=== PATIENT | female | born 1965 | race Caucasian/White ===

== ENCOUNTER 2017-11-07 14:06 | Emergency (ER) | payer SELFPAY ==
[2017-11-07 14:28] VITALS: BP 126/65
[2017-11-07] MEDS ORDERED: Ketorolac 60 MG/2 ML SDV IM ONE (14:59)
--- NOTE | 2017-11-07 15:02 | EDM.PDOC ---
ED HPI GENERAL MEDICAL PROBLEM - General Chief Complaint: Upper Extremity Injury/Pain Stated Complaint: LEFT THUMB PAIN,UTI SYMPTOMS Time Seen by Provider: 11/07/17 14:55 Source of Information: Reports: Patient, RN Notes Reviewed History Limitations: Reports: No Limitations - History of Present Illness INITIAL COMMENTS - FREE TEXT/NARRATIVE: 52-year-old female presents to the emergency department day complaint of pain in her left thumb, she denies any trauma pain is been ongoing for some time does have some swelling in that thumb but it is worse today. Also complains of urinary tract symptomatology with dribbling incontinence and frequency no fevers Left 1-Thumb Pain Score (Numeric/FACES): 4 - Related Data Allergies Allergy/AdvReac Type Severity Reaction Status Date / Time No Known Allergies Allergy Verified 11/07/17 14:39 Home Meds: Home Meds NK [No Known Home Meds] 05/10/13 [History] Past Medical History - Past Surgical History Female Surgical History: Reports: Tubal Ligation Social & Family History - Tobacco Use Smoking Status *Q: Light Tobacco Smoker Years of Tobacco use: 20 Packs/Tins Daily: 0.5 Second Hand Smoke Exposure: Yes - Alcohol Use Days Per Week of Alcohol Use: 3 Number of Drinks Per Day: 1 Total Drinks Per Week: 3 - Recreational Drug Use Recreational Drug Use: No ED ROS GENERAL - Review of Systems Review Of Systems: See Below Constitutional: Reports: No Symptoms Respiratory: Reports: No Symptoms Cardiovascular: Reports: No Symptoms GI/Abdominal: Reports: No Symptoms : Reports: Dysuria, Frequency. Denies: Flank Pain Musculoskeletal: Reports: Joint Pain (Thumb pain left) ED EXAM, GENERAL - Physical Exam Exam: See Below Free Text/Narrative:: Examination of the thumb full range of motion of the wrist no difficulty full range of motion digits 2 through 5 however she does have an audible click at the PIP joint digit #1 consistent with trigger finger Exam Limited By: No Limitations General Appearance: Alert, WD/WN, No Apparent Distress GI/Abdominal: Soft, Non-Tender Course - Vital Signs Last Recorded V/S: Last Vital Signs Temp 97.5 F 11/07/17 14:38 Pulse 81 11/07/17 14:38 Resp 18 11/07/17 14:38 BP 126/65 11/07/17 14:38 Pulse Ox 93 L 11/07/17 14:38 - Orders/Labs/Meds Orders: Active Orders 24 hr Category Date Time Status UA W/MICROSCOPIC [URIN] Urgent Lab 11/07/17 15:03 Ordered Labs: Laboratory Tests 11/07/17 Range/Units 15:03 Urine Color Yellow Urine Appearance Clear Urine pH 7.0 (4.5-8.0) Ur Specific [place] 1.010 (1.008-1.030) Urine Protein Negative (NEGATIVE) mg/dL Urine Glucose (UA) Normal (NEGATIVE) mg/dL Urine Ketones Negative (NEGATIVE) mg/dL Urine Occult Blood Negative (NEGATIVE) Urine Nitrite Negative (NEGATIVE) Urine Bilirubin Negative (NEGATIVE) Urine Urobilinogen Normal (NORMAL) mg/dL Ur Leukocyte Esterase Negative (NEGATIVE) Urine RBC 0-5 (0-5) Urine WBC 0-5 (0-5) Ur Epithelial Cells Few Amorphous Sediment Not seen Urine Bacteria Not seen Urine Mucus Not seen Meds: Medications Discontinued Medications Generic Name Dose Route Start Last Admin Trade Name Freq PRN Reason Stop Dose Admin Ketorolac Tromethamine 60 mg 11/07/17 14:59 11/07/17 15:08 Toradol IM 11/07/17 15:00 60 mg ONETIME ONE Administration Departure - Departure Time of Disposition: 15:14 Disposition: Home, Self-Care 01 Condition: Good Clinical Impression: Trigger finger of left thumb - Discharge Information Referrals: Renzo Connell MD [Primary Care Provider] - Forms: ED Department Discharge Additional Instructions: Use ibuprofen or Tylenol as needed for pain control, please follow-up with orthopedics on Friday for further evaluation - My Orders Last 24 Hours: My Active Orders 11/07/17 15:03 UA W/MICROSCOPIC [URIN] Urgent - Assessment/Plan Last 24 Hours: My Active Orders 11/07/17 15:03 UA W/MICROSCOPIC [URIN] Urgent Plan: Assessment Acuity = acute Site and laterality = trigger finger digit #1 left hand Etiology = unclear etiology Manifestations = pain Location of injury = Home Lab values = urinalysis unremarkable Plan She was provided Toradol injection 60 mg 1, consultation with orthopedics on Friday morning This note was dictated using [email or web address] voice recognition software please call with any questions on syntax or rony.
== END 2017-11-07 15:25 | disposition home or self-care (01) ==
LOC: JP.ED 14:06
DX: M65.312 Trigger thumb, left thumb (principal); F17.210 Nicotine dependence, cigarettes, uncomplicated
CPT/HCPCS: 81001; 96372; 99284; J1885

== ENCOUNTER 2018-09-08 14:09 | Emergency (ER) | payer MEDICAID ==
--- NOTE | 2018-09-08 15:26 | EDM.PDOC ---
ED HPI GENERAL MEDICAL PROBLEM - General Chief Complaint: Upper Extremity Injury/Pain Stated Complaint: INJURED RIGHT ARM Time Seen by Provider: 09/08/18 15:21 Source of Information: Reports: Patient, Family, RN Notes Reviewed History Limitations: Reports: No Limitations - History of Present Illness INITIAL COMMENTS - FREE TEXT/NARRATIVE: 53-year-old female presents to the emergency department today with complaint of pain in her right arm, she injured herself while out shoveling snow she fell and landed on the right forearm she is now experiencing pain and has difficulty opening and closing her hand Right Wrist Pain Score (Numeric/FACES): 8 - Related Data Allergies Allergy/AdvReac Type Severity Reaction Status Date / Time No Known Allergies Allergy Verified 09/08/18 15:07 Home Meds: Home Meds NK [No Known Home Meds] 05/10/13 [History] Past Medical History Musculoskeletal History: Reports: Other (See Below) Other Musculoskeletal History: left hand thumb pain - Past Surgical History Female Surgical History: Reports: Tubal Ligation Social & Family History - Tobacco Use Smoking Status *Q: Current Every Day Smoker Years of Tobacco use: 20 Packs/Tins Daily: 0.5 Second Hand Smoke Exposure: Yes - Caffeine Use Caffeine Use: Reports: Coffee, Energy Drinks, Soda, Tea - Alcohol Use Days Per Week of Alcohol Use: 1 Number of Drinks Per Day: 3 Total Drinks Per Week: 3 - Recreational Drug Use Recreational Drug Use: No Review of Systems - Review of Systems Review Of Systems: See Below Musculoskeletal: Reports: Arm Pain Skin: Reports: No Symptoms Neurological: Reports: No Symptoms ED EXAM, GENERAL - Physical Exam Exam: See Below Free Text/Narrative:: Examination the right upper extremity I don't appreciate any erythema or edema located over the tender area mid forearm there is no tenderness shoulder elbow or wrist she has full range of motion of all digits but it is limited when she closes her hand radial pulse is +2 can palpate a firm area in the muscle structure mid forearm it is tender to the touch at that spot Course - Vital Signs Last Recorded V/S: Last Vital Signs Temp 95.7 F 09/08/18 15:07 Pulse 91 09/08/18 15:07 Resp 16 09/08/18 15:07 BP 134/83 09/08/18 15:07 Pulse Ox 99 09/08/18 15:07 - Orders/Labs/Meds Orders: Active Orders 24 hr Category Date Time Status Forearm 2V Rt [CR] Stat Exams 09/08/18 15:23 Taken Meds: Medications Discontinued Medications Generic Name Dose Route Start Last Admin Trade Name Shannon PRN Reason Stop Dose Admin Ketorolac Tromethamine 30 mg 09/08/18 15:55 Toradol IM 09/08/18 15:56 ONETIME ONE Departure - Departure Time of Disposition: 16:15 Disposition: Home, Self-Care 01 Condition: Fair Clinical Impression: Contusion of right forearm Qualifiers: Encounter type: initial encounter Qualified Code(s): S50.11XA - Contusion of right forearm, initial encounter - Discharge Information Referrals: Renzo Connell MD [Primary Care Provider] - Forms: ED Department Discharge Additional Instructions: Use ibuprofen for baseline pain control, use Flexeril as needed for muscle relaxant, Please followup with your primary care provider in 5-7 days if not better, please call return to the emergency department with worsening of symptoms. - My Orders Last 24 Hours: My Active Orders 09/08/18 15:23 Forearm 2V Rt [CR] Stat - Assessment/Plan Last 24 Hours: My Active Orders 09/08/18 15:23 Forearm 2V Rt [CR] Stat Plan: Assessment Acuity = acute Site and laterality = right forearm contusion Etiology = secondary to a fall Manifestations = pain Location of injury = Home Lab values = forearm x-ray I did review films myself I cannot appreciate any acute process, the official read from radiology is pending Plan I did review x-ray films with her, recommend ibuprofen prescription written for Flexeril 10 mg by mouth 3 times a day when necessary total #15 follow-up primary care 3-5 days if no improvement This note was dictated using [employer] recognition software please call with any questions on syntax or grammar.
[2018-09-08] MEDS ORDERED: Ketorolac 30 MG/ML SDV IM ONE (15:55)
[2018-09-08 16:42] VITALS: BP 125/79
--- NOTE | 2018-09-09 10:50 | CRLCR ---
INDICATION: fall, Pain TECHNIQUE: Right forearm 2 views. COMPARISON: None. FINDINGS: Bones: Alignment is normal. No fractures or bone lesions. Joint spaces: Unremarkable. Soft tissues: Unremarkable. IMPRESSION: Unremarkable right forearm. Dictated by: Arthur Alas MD @ 09/08/2018 17:05:43 (Electronically Signed)
== END 2018-09-08 16:45 | disposition home or self-care (01) ==
LOC: JP.ED 14:09
DX: S50.11XA Contusion of right forearm, initial encounter (principal); F17.210 Nicotine dependence, cigarettes, uncomplicated; W19.XXXA Unspecified fall, initial encounter
CPT/HCPCS: 73090; 96372; 99284; J1885

== ENCOUNTER 2019-07-09 11:24 | Emergency (ER) | payer MEDICAID ==
[2019-07-09 11:38] VITALS: BP 123/80; PULSE 87
--- NOTE | 2019-07-09 12:34 | EDM.PDOC ---
ED HPI GENERAL MEDICAL PROBLEM - General Chief Complaint: Genitourinary Problem Stated Complaint: UTI AND YEAST INFECTION Time Seen by Provider: 07/09/19 12:25 Source of Information: Reports: Patient, RN Notes Reviewed History Limitations: Reports: No Limitations - History of Present Illness INITIAL COMMENTS - FREE TEXT/NARRATIVE: 54-year-old female presents emergency department a complaint of burning with urination and vaginal itching, she does have a history of recurrent urinary tract infections as well as yeast infections. She states this particular event started about 5 days prior she usually is able to control her urinary symptoms with cranberry juice however this did not work for her and she is now developed some right back pain, no fever. Abdomen Pain Score (Numeric/FACES): 9 - Related Data Allergies Allergy/AdvReac Type Severity Reaction Status Date / Time No Known Allergies Allergy Verified 09/08/18 15:07 Home Meds: Home Meds Fluconazole [Diflucan] 150 mg PO ONETIME #1 tab 07/09/19 [Rx] Sulfamethoxazole/Trimethoprim [Bactrim Ds Tablet] 1 each PO BID #20 tablet 07/09 [Rx] Past Medical History Genitourinary History: Reports: UTI, Recurrent Musculoskeletal History: Reports: Other (See Below) Other Musculoskeletal History: left hand thumb pain - Past Surgical History Female Surgical History: Reports: Tubal Ligation Social & Family History - Family History Family Medical History: Unobtainable - Tobacco Use Smoking Status *Q: Current Every Day Smoker Years of Tobacco use: 20 Packs/Tins Daily: 0.5 Used Tobacco, but Quit: No - Caffeine Use Caffeine Use: Reports: Coffee, Soda - Recreational Drug Use Recreational Drug Use: No ED ROS GENERAL - Review of Systems Review Of Systems: See Below Constitutional: Denies: Fever, Chills Respiratory: Reports: No Symptoms Cardiovascular: Reports: No Symptoms GI/Abdominal: Reports: No Symptoms : Reports: Dysuria, Flank Pain ED EXAM, RENAL/ - Physical Exam Exam: See Below Exam Limited By: No Limitations General Appearance: Alert, WD/WN, No Apparent Distress Respiratory/Chest: No Respiratory Distress GI/Abdominal: Soft, Non-Tender Back Exam: Normal Inspection, Full Range of Motion, CVA Tenderness (R). No: CVA Tenderness (L) Course - Vital Signs Last Recorded V/S: Last Vital Signs Temp 97.1 F 07/09/19 11:37 Pulse 87 07/09/19 11:37 Resp 18 07/09/19 11:37 BP 123/80 07/09/19 11:37 Pulse Ox 93 L 07/09/19 11:37 - Orders/Labs/Meds Orders: Active Orders 24 hr Category Date Time Status CULTURE URINE [RM] Urgent Lab 07/09/19 12:25 Ordered Labs: Laboratory Tests 07/09/19 Range/Units 11:41 Urine Color Yellow (YELLOW) Urine Appearance Cloudy A (CLEAR) Urine pH 7.0 (5.0-8.0) Ur Specific [place] 1.015 (1.008-1.030) Urine Protein 30 H (NEGATIVE) mg/dL Urine Glucose (UA) Negative (NEGATIVE) mg/dL Urine Ketones Negative (NEGATIVE) mg/dL Urine Occult Blood Trace-intact H (NEGATIVE) Urine Nitrite Positive H (NEGATIVE) Urine Bilirubin Negative (NEGATIVE) Urine Urobilinogen 0.2 (0.2-1.0) EU/dL Ur Leukocyte Esterase Moderate H (NEGATIVE) Urine RBC 0-5 (0-5) Urine WBC 75-100 H (0-5) Ur Epithelial Cells Few Amorphous Sediment Not seen Urine Bacteria Few Urine Mucus Not seen Departure - Departure Time of Disposition: 12:33 Disposition: Home, Self-Care 01 Condition: Fair Clinical Impression: UTI, Urinary tract infectious disease - Discharge Information Prescriptions: Fluconazole [Diflucan] 150 mg PO ONETIME #1 tab Sulfamethoxazole/Trimethoprim [Bactrim Ds Tablet] 1 each PO BID #20 tablet Instructions: Urinary Tract Infection, Adult, [id number] Referrals: PCP,None [Primary Care Provider] - Additional Instructions: Take full course of antibiotics, take the Diflucan after completion of antibiotics, please followup with your primary care provider in 3-5 days if not better, please call return to the emergency department with worsening of symptoms. - My Orders Last 24 Hours: My Active Orders 07/09/19 12:25 CULTURE URINE [RM] Urgent - Assessment/Plan Last 24 Hours: My Active Orders 07/09/19 12:25 CULTURE URINE [RM] Urgent Plan: Assessment Acuity = acute Site and laterality = urinary tract infection concern for pyelonephritis Etiology = bacterial cause Manifestations = dysuria Location of injury = Home Lab values = urinalysis is positive for nitrates 75 200 WBCs consistent with a pyuria with few bacteria urine cultures pending Plan Elect to treat empirically Bactrim DS 1 tab p.o. twice daily x10 days as well as Diflucan to be taken after the treatment with antibiotics follow-up primary care 3 to 5 days if not better This note was dictated using [employer] recognition software please call with any questions on syntax or grammar.
== END 2019-07-09 12:46 | disposition home or self-care (01) ==
LOC: JP.ED 11:24
DX: N39.0 Urinary tract infection, site not specified (principal); B96.89 Other specified bacterial agents as the cause of diseases classified elsewhere; F17.210 Nicotine dependence, cigarettes, uncomplicated; Z79.899 Other long term (current) drug therapy
CPT/HCPCS: 81001; 87086; 87088; 87186; 99283

== ENCOUNTER 2019-10-15 10:26 | Emergency (ER) | payer MEDICAID ==
[2019-10-15 10:41] VITALS: BP 117/77; PULSE 88
[2019-10-15] MEDS ORDERED: Ketorolac 60 MG/2 ML SDV IM ONE (10:54)
--- NOTE | 2019-10-15 10:59 | EDM.PDOC ---
ED HPI GENERAL MEDICAL PROBLEM - General Chief Complaint: Respiratory Problem Stated Complaint: CHEST PAIN AND SOB Time Seen by Provider: 10/15/19 10:45 Source of Information: Reports: Patient, Old Records, RN History Limitations: Reports: No Limitations - History of Present Illness INITIAL COMMENTS - FREE TEXT/NARRATIVE: 54 yo female awoke today with sternal tenderness worsened with pushing on area or with deep breathing. Has noticed increased joint pains over the past couple of days. Denies fever or cough. No other sx's. Onset: Today Onset Date: 10/15/19 Onset Time: 10:00 (just woke up) Duration: Minutes: (?), Constant Location: Reports: Chest (sternal) Quality: Reports: Ache Severity: Mild Improves with: Reports: Rest Worsens with: Reports: Other (deep breathing or pushing on area) Context: Reports: Other (See HPI) Associated Symptoms: Reports: Chest Pain (sternum). 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) - Related Data Allergies Allergy/AdvReac Type Severity Reaction Status Date / Time No Known Allergies Allergy Verified 10/15/19 10:39 Home Meds: Home Meds Meloxicam 15 mg PO BID #20 tablet 10/15/19 [Rx] Past Medical History Genitourinary History: Reports: UTI, Recurrent Musculoskeletal History: Reports: Other (See Below) Other Musculoskeletal History: left hand thumb pain - Past Surgical History Female Surgical History: Reports: Tubal Ligation Social & Family History - Family History Family Medical History: Unobtainable - Tobacco Use Smoking Status *Q: Current Every Day Smoker Years of Tobacco use: 20 Packs/Tins Daily: 0.5 - Caffeine Use Caffeine Use: Reports: Coffee, Soda ED ROS GENERAL - Review of Systems Review Of Systems: See Below Constitutional: Reports: No Symptoms HEENT: Reports: No Symptoms Respiratory: Reports: No Symptoms Cardiovascular: Reports: No Symptoms Endocrine: Reports: No Symptoms GI/Abdominal: Reports: No Symptoms : Reports: No Symptoms Musculoskeletal: Reports: Other (sternal tenderness) Skin: Reports: No Symptoms Neurological: Reports: No Symptoms Psychiatric: Reports: No Symptoms ED EXAM, GENERAL - Physical Exam Exam: See Below Exam Limited By: No Limitations General Appearance: Alert, WD/WN, No Apparent Distress Eye Exam: Bilateral Eye: PERRL Ears: Normal External Exam, Normal Canal, Hearing Grossly Normal, Normal TMs Ear Exam: Bilateral Ear: Auricle Normal, Canal Normal, TM normal Nose: Normal Inspection, No Blood Throat/Mouth: Normal Inspection, Normal Lips, No Airway Compromise, Other ( slightly hoarse voice). No: Normal Teeth Head: Atraumatic, Normocephalic Neck: Normal Inspection Respiratory/Chest: No Respiratory Distress, No Accessory Muscle Use, Decreased Breath Sounds (slightly decreased), Other (Sternal tenderness). No: Respiratory Distress, Crackles, Rales, Rhonchi, Wheezing, Stridor, Pleural Rub, Accessory Muscle Use, Retractions, Prolonged Expiration Cardiovascular: Regular Rate, Rhythm, No Edema GI/Abdominal: Normal Bowel Sounds, Soft, Non-Tender, No Distention Back Exam: Normal Inspection. No: CVA Tenderness (R), CVA Tenderness (L) Extremities: Normal Inspection, Normal Range of Motion, Non-Tender, No Pedal Edema Neurological: Alert, Oriented, CN II-XII Intact, Normal Cognition, No Motor/ Sensory Deficits Psychiatric: Normal Affect, Normal Mood Skin Exam: Warm, Dry, Intact, Normal Color, No Rash Course - Vital Signs Last Recorded V/S: Last Vital Signs Temp 36.3 C 10/15/19 10:46 Pulse 88 10/15/19 10:46 Resp 20 10/15/19 10:46 BP 117/77 10/15/19 10:46 Pulse Ox 100 10/15/19 10:46 - Orders/Labs/Meds Meds: Medications Discontinued Medications Generic Name Dose Route Start Last Admin Trade Name Shannon PRN Reason Stop Dose Admin Ketorolac Tromethamine 60 mg 10/15/19 10:54 10/15/19 11:04 Toradol IM 10/15/19 10:55 60 mg ONETIME ONE Administration - Re-Assessments/Exams Free Text/Narrative Re-Assessment/Exam: 10/15/19 11:34 Feeling better after Toradol. Departure - Departure Time of Disposition: 11:40 Disposition: Home, Self-Care 01 Condition: Good Clinical Impression: Costochondritis - Discharge Information *PRESCRIPTION DRUG MONITORING PROGRAM REVIEWED*: No *COPY OF PRESCRIPTION DRUG MONITORING REPORT IN PATIENT BURT: No Instructions: Costochondritis, [id number] Referrals: Renzo Connell MD [Primary Care Provider] - Forms: ED Department Discharge Additional Instructions: No smoking. Take meloxicam with breakfast and supper daily until your sternal tenderness is resolved. You may add acetaminophen up to 1000 mg every 6 hrs for added relief. Recheck with your provider next week if not improving. Sepsis Event Note - Evaluation Sepsis Screening Result: No Definite Risk - Focused Exam Vital Signs: Vital Signs Temp Pulse Resp BP Pulse Ox 10/15/19 10:46 36.3 C 88 20 117/77 100 10/15/19 10:35 36.3 C 88 20 117/77 100 Date Exam was Performed: 10/15/19 Time Exam was Performed: 11:34
== END 2019-10-15 11:48 | disposition home or self-care (01) ==
LOC: JP.ED 10:26
DX: M94.0 Chondrocostal junction syndrome [Tietze] (principal); F17.210 Nicotine dependence, cigarettes, uncomplicated
CPT/HCPCS: 96372; 99284; J1885

== ENCOUNTER 2020-11-18 17:11 | Emergency (ER) | payer MEDICAID ==
[2020-11-18 17:23] VITALS: BP 110/65; PULSE 104
[2020-11-18] MEDS ORDERED: Diphtheria,Pertussis(Acell),Tetanus Vaccine 0.5 ML Syringe IM ONE (17:35)
--- NOTE | 2020-11-18 17:39 | EDM.PDOC ---
ED HPI GENERAL MEDICAL PROBLEM - General Chief Complaint: Bite:Animal, Insect Stated Complaint: DOG BITE Time Seen by Provider: 11/18/20 17:32 Source of Information: Reports: Patient, RN Notes Reviewed History Limitations: Reports: No Limitations - History of Present Illness INITIAL COMMENTS - FREE TEXT/NARRATIVE: 55-year-old female presents emergency department today with a dog bite to her left hand unfortunately both the dogs belonged to her they were in a fight she tried to break it up and she got bit on the left hand she has a puncture wound on both the dorsal and palmar surface - Related Data Allergies Allergy/AdvReac Type Severity Reaction Status Date / Time No Known Allergies Allergy Verified 11/18/20 17:21 Home Meds: Home Meds NK [No Known Home Meds] 11/18/20 [History] Past Medical History Genitourinary History: Reports: UTI, Recurrent 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: Musculoskeletal History: Reports: Other (See Below) Other Musculoskeletal History: left hand thumb pain Endocrine/Metabolic History: Reports: Obesity/BMI 30+ - Infectious Disease History Infectious Disease History: Reports: Chicken Pox, Measles, Mumps - Past Surgical History Head Surgeries/Procedures: Reports: None Female Surgical History: Reports: Tubal Ligation Endocrine Surgical History: Reports: None Musculoskeletal Surgical History: Reports: None Dermatological Surgical History: Reports: None Social & Family History - Family History Family Medical History: Unobtainable - Tobacco Use Tobacco Use Status *Q: Current Every Day Tobacco User Years of Tobacco use: 40 Packs/Tins Daily: 0.7 Used Tobacco, but Quit: No Second Hand Smoke Exposure: No - Caffeine Use Caffeine Use: Reports: Coffee, Energy Drinks, Soda, Tea - Recreational Drug Use Recreational Drug Use: No ED ROS GENERAL - Review of Systems Review Of Systems: See Below Constitutional: Reports: No Symptoms Skin: Reports: Wound ED EXAM, ANIMAL BITE - Physical Exam Exam: See Below Text/Narrative:: Exam examination of the left hand there is a superficial laceration palmar surface left hand approximately 50 mm in length there is a puncture wound on the dorsal surface between digits 2 and 3 she has full range of motion of all digits she does have a hematoma that has developed on the dorsal surface is tender to the touch bleeding is controlled radial pulses +2 sensation is intact Exam Limited By: No Limitations General Appearance: Alert, WD/WN, No Apparent Distress Course - Vital Signs Last Recorded V/S: Last Vital Signs Temp 97.8 F 11/18/20 17:24 Pulse 104 H 11/18/20 17:24 Resp 16 11/18/20 17:24 BP 110/65 11/18/20 17:24 Pulse Ox 98 11/18/20 17:24 - Orders/Labs/Meds Orders: Active Orders 24 hr Category Date Time Status Vaccines to be Administered [RC] PER UNIT ROUTINE Care 11/18/20 17:35 Ordered Diphth,Pertuss(Acell),Tet Vac [Boostrix] Med 11/18/20 17:35 Once 0.5 ml IM .ONCE ONE Medication Orders Diphtheria/Tetanus/Acell Pertussis (Diphtheria,Pertussis(Acell),Tetanus Vaccine 0.5 Ml Syringe) 0.5 ml IM .ONCE ONE Stop: 11/18/20 17:36 Meds: Medications Generic Name Dose Route Start Last Admin Trade Name Freq PRN Reason Stop Dose Admin Diphtheria/Tetanus/Acell Pertussis 0.5 ml 11/18/20 17:35 Diphtheria,Pertussis(Acell),Tetanus Vaccine 0.5 Ml Syringe IM 11/18/20 17:36 .ONCE ONE Departure - Departure Time of Disposition: 17:38 Disposition: Home, Self-Care 01 Condition: Fair Clinical Impression: Dog bite of hand Qualifiers: Encounter type: initial encounter Laterality: left Qualified Code(s): S61.452A - Open bite of left hand, initial encounter; W54.0XXA - Bitten by dog, initial encounter - Discharge Information Instructions: Animal Bite, Adult, [id number] Referrals: PCP,None [Primary Care Provider] - Additional Instructions: Take full course of antibiotics please followup with your primary care provider in 3-5 days if not better, please call return to the emergency department with worsening of symptoms., Sepsis Event Note (ED) - Evaluation Sepsis Screening Result: No Definite Risk - Focused Exam Vital Signs: Vital Signs Temp Pulse Resp BP Pulse Ox 11/18/20 17:24 97.8 F 104 H 16 110/65 98 11/18/20 17:21 97.8 F 104 H 16 110/65 98 - My Orders Last 24 Hours: My Active Orders 11/18/20 17:35 Vaccines to be Administered [RC] PER UNIT ROUTINE Diphth,Pertuss(Acell),Tet Vac [Boostrix] 0.5 ml IM .ONCE ONE - Assessment/Plan Last 24 Hours: My Active Orders 11/18/20 17:35 Vaccines to be Administered [RC] PER UNIT ROUTINE Gasper Breaux(Acell),Tet Vac [Boostrix] 0.5 ml IM .ONCE ONE Plan: Assessment Acuity = acute Site and laterality = dog bite left hand Etiology = canine Manifestations = none Location of injury = Home Lab values = none Plan Elected to treat empirically Augmentin 875 p.o. twice daily x10 days, her tetanus was updated today, these are both her dog she states all the shots are up-to-date no concern for rabies follow-up primary care 3 to 5 days if no improvement This note was dictated using [employer] voice recognition software please call with any questions on syntax or grammar.
== END 2020-11-18 17:45 | disposition home or self-care (01) ==
LOC: JP.ED 17:11
DX: S61.452A Open bite of left hand, initial encounter (principal); E66.9 Obesity, unspecified; Z23 Encounter for immunization; Z72.0 Tobacco use; Z68.32 Body mass index [BMI] 32.0-32.9, adult; W54.0XXA Bitten by dog, initial encounter
CPT/HCPCS: 90471; 90715; 99283

== ENCOUNTER 2021-04-30 11:36 | Emergency (ER) | payer MEDICAID | END 2021-04-30 16:06 | disposition left against medical advice (07) | LOC: JP.ED 11:36 | DX: Z53.21 Procedure and treatment not carried out due to patient leaving prior to being seen by health care provider (principal) ==

== ENCOUNTER 2021-12-04 00:28 | Emergency (ER) | payer MEDICAID ==
[2021-12-04] MEDS ORDERED: Sodium Chloride 0.9% 10 ML Syringe FLUSH PRN (00:40)
[2021-12-04] MEDS ORDERED: Ketorolac 30 MG/ML SDV IVPUSH ONE (00:48)
[2021-12-04] MEDS ORDERED: LORazepam 2 MG/ML SDV IVPUSH ONE (00:49)
[2021-12-04 01:12] LABS: TROPONIN I HIGH SENSITIVITY 19.2 pg/mL (<=60.3)
[2021-12-04] MEDS ORDERED: Sodium Chloride 0.9% 500 ML IV ONE ×2 (01:38→02:49)
[2021-12-04] MEDS ORDERED: Sodium Chloride 0.9% 75 ML IV SCH (01:45)
[2021-12-04] MEDS ORDERED: Iopamidol 755 Mg/ML 100 ML Bottle IV SCH (01:45)
[2021-12-04] MEDS: Sodium Chloride 0.9% 10 ML Syringe FLUSH ONE ×2 (02:13→02:19)
[2021-12-04] MEDS ORDERED: Sodium Chloride 0.9% 1,000 ML IV SCH (03:15)
[2021-12-04 03:34] VITALS: BP 98/62; PULSE 99
== END 2021-12-04 04:04 ==
LOC: JP.ED 00:28
DX: R07.89 Other chest pain (principal); M25.512 Pain in left shoulder; F41.1 Generalized anxiety disorder; F43.0 Acute stress reaction; I51.81 Takotsubo syndrome; I31.3 Pericardial effusion (noninflammatory); I50.9 Heart failure, unspecified; E66.9 Obesity, unspecified; Z68.31 Body mass index [BMI] 31.0-31.9, adult
CPT/HCPCS: 36415; 71275; 80048; 83605; 83735; 84484; 85025; 85379; 93005; 93010; 96374; 96375; 99284; 99285-25; J1885; J2060; J3490; J7040; Q9967; U0002

== ENCOUNTER 2022-09-23 16:29 | Emergency (ER) | payer MEDICAID ==
[2022-09-23 18:33] VITALS: BP 115/45; PULSE 48
== END 2022-09-23 18:40 | disposition home or self-care (01) ==
LOC: JP.ED 16:29
DX: F41.1 Generalized anxiety disorder (principal); I31.39 Other pericardial effusion (noninflammatory); R00.0 Tachycardia, unspecified; I10 Essential (primary) hypertension; I48.91 Unspecified atrial fibrillation; F17.210 Nicotine dependence, cigarettes, uncomplicated; E66.9 Obesity, unspecified; Z79.899 Other long term (current) drug therapy; Z68.26 Body mass index [BMI] 26.0-26.9, adult
CPT/HCPCS: 36415; 71045; 71045-26; 80048; 83735; 83880; 84443; 85025; 85379; 99285

== ENCOUNTER 2023-06-30 11:04 | Emergency (ER) | payer MEDICAID ==
[2023-06-30 12:13] LABS: INFLUENZA A NAA NEGATIVE (NEGATIVE); INFLUENZA B NAA NEGATIVE (NEGATIVE); RESPIRATORY SYNCYTIAL VIR NAA NEGATIVE (NEGATIVE)
[2023-06-30 12:15] LABS: CORONAVIRUS COVID-19 NAA POSITIVE (NEGATIVE)
[2023-06-30 12:38] LABS: BASE EXCESS VENOUS -0.3 mm/L; BICARBONATE,VENOUS 20.9 mmol/L; CARBOXYHEMOGLOBIN 3.2 % (0.0-1.6); METHEMOGLOBIN 0.7 %; O2 SATURATION VENOUS 97.3; OXYHEMOGLOBIN 93.5 %; PCO2 VENOUS 25.2 mm/Hg; PO2 VENOUS 82.4 mm/Hg; TOTAL HEMOGLOBIN 12.2 g/dL (12.0-16.0)
[2023-06-30 12:39] LABS: BASOPHILS ABSOLUTE AUTO 0.04 K/uL (0.00-0.10); BASOPHILS PERCENT AUTO 0.5 % (0.1-1.3); EOSINOPHILS ABSOLUTE AUTO 0.04 K/uL (0.00-0.40); EOSINOPHILS PERCENT AUTO 0.5 % (0.0-5.4); HEMATOCRIT 34.6 % (34.3-46.0); HEMOGLOBIN 11.5 g/dL (11.2-15.5); IMMATURE GRAN ABSOLUTE AUTO 0.03 K/uL (0.00-0.23); IMMATURE GRAN PERCENT AUTO 0.4 % (0.0-0.7); LYMPHOCYTES PERCENT AUTO 17.8 % (11.4-47.7); MEAN CORPUSCULAR HEMOGLOBIN 28.5 pg (31.6-35.5); MEAN CORPUSCULAR HGB CONC 33.2 g/dL (31.6-35.5); MEAN CORPUSCULAR VOLUME 85.6 fL (81.4-99.0); MONOCYTES ABSOLUTE AUTO 0.64 K/uL (0.20-0.90); MONOCYTES PERCENT AUTO 7.6 % (3.3-12.6); NEUTROPHILS ABSOLUTE AUTO 6.18 K/uL (1.0-7.6); NEUTROPHILS PERCENT AUTO 73.2 % (40.0-78.1); PLATELET COUNT,PLT 255 K/uL (130-375); RED BLOOD CELL COUNT 4.04 M/uL (3.77-5.24); WHITE BLOOD CELL COUNT,WBC 8.4 K/uL (3.2-11.0)
[2023-06-30] MEDS ORDERED: Sodium Chloride 0.9% 1,000 ML IV SCH (12:45)
[2023-06-30 13:09] LABS: ALANINE AMINOTRANSFERASE,ALT 51 U/L (12-78); ALBUMIN 3.5 g/dL (3.4-5.0); ALKALINE PHOSPHATASE 93 U/L (46-116); ASPARTATE AMNIOTRANSFERASE,AST 33 U/L (15-37); BILIRUBIN TOTAL 1.3 mg/dL (0.2-1.0); BLOOD UREA NITROGEN,BUN 12 mg/dL (7-18); CALCIUM 8.6 mg/dL (8.5-10.1); CARBON DIOXIDE,CO2 22 mmol/L (21-32); CHLORIDE,CL 104 mmol/L (100-108); CREATININE 0.9 mg/dL (0.6-1.0); EST CRCL DRUG DOSING (CG) 65.34 mL/min; ESTIMATED GFR 75 mL/min (>60); GLUCOSE RANDOM 108 mg/dL (74-106); POTASSIUM,K 3.8 mmol/L (3.6-5.2); PRO B-TYPE NATRIUR PEPT,BNPPRO 20877 pg/mL (5-125); PROTEIN TOTAL,TP 6.9 g/dL (6.4-8.2); SODIUM,NA 138 mmol/L (140-148)
[2023-06-30 13:11] LABS: ANION GAP 15.8 mmol/L (5.0-14.0)
[2023-06-30 13:43] VITALS: BP 107/63; PULSE 56
[2023-06-30 14:44] LABS: APPEARANCE,URINE SLIGHTLY CLOUDY (CLEAR); BILIRUBIN,URINE NEGATIVE (NEGATIVE); COLOR,URINE YELLOW (YELLOW); GLUCOSE,URINE NEGATIVE (NEGATIVE); KETONES,URINE NEGATIVE (NEGATIVE); LEUKOCYTE ESTERASE,URINE TRACE (NEGATIVE); NITRITE,URINE NEGATIVE (NEGATIVE); OCCULT BLOOD,URINE TRACE-LYSED (NEGATIVE); PH,URINE 6.5 (5.0-8.0); PROTEIN,URINE NEGATIVE (NEGATIVE)
[2023-06-30 14:53] LABS: AMORPHOUS SEDIMENT,URINE NOT SEEN; BACTERIA,URINE MODERATE; EPITHELIAL CELLS,URINE FEW; MUCUS,URINE FEW; RBC,URINE 0-5 (0-5); WBC,URINE 0-5 (0-5)
[2023-06-30] MEDS ORDERED: cefTRIAXone 1 GM in Sodium Chloride 0.9% 50 ML IV ONE (15:25)
== END 2023-06-30 16:44 | disposition home or self-care (01) ==
LOC: JP.ED 11:04
DX: U07.1 COVID-19 (principal); I26.99 Other pulmonary embolism without acute cor pulmonale; E86.0 Dehydration; I10 Essential (primary) hypertension; I48.91 Unspecified atrial fibrillation; J45.909 Unspecified asthma, uncomplicated; E66.9 Obesity, unspecified; Z79.899 Other long term (current) drug therapy; Z68.25 Body mass index [BMI] 25.0-25.9, adult
CPT/HCPCS: 0241U; 36415; 71045; 71275; 80053; 81001; 82803; 83605; 83880; 84145; 84484; 85025; 85379; 87040; 93005; 96361; 96365; 99285; J0696; J3490; J7030

== ENCOUNTER 2023-07-03 18:27 | Emergency (ER) | payer SELFPAY ==
[2023-07-03 19:25] VITALS: BP 112/80; PULSE 104
== END 2023-07-03 20:47 | disposition home or self-care (01) ==
LOC: JP.ED 18:27
DX: U07.1 COVID-19 (principal); I26.99 Other pulmonary embolism without acute cor pulmonale; I10 Essential (primary) hypertension; F17.210 Nicotine dependence, cigarettes, uncomplicated; E66.9 Obesity, unspecified; Z86.16 Personal history of COVID-19; Z79.899 Other long term (current) drug therapy; Z68.25 Body mass index [BMI] 25.0-25.9, adult
CPT/HCPCS: 99283; 99284

== ENCOUNTER 2023-07-06 13:35 | Emergency (ER) | payer SELFPAY ==
[2023-07-06 14:28] VITALS: BP 99/75; PULSE 69
[2023-07-06 15:37] LABS: BASOPHILS PERCENT AUTO 0.3 % (0.1-1.3); EOSINOPHILS ABSOLUTE AUTO 0.24 K/uL (0.00-0.40); EOSINOPHILS PERCENT AUTO 4.1 % (0.0-5.4); HEMATOCRIT 36.5 % (34.3-46.0); HEMOGLOBIN 11.8 g/dL (11.2-15.5); IMMATURE GRAN PERCENT AUTO 0.3 % (0.0-0.7); LYMPHOCYTES ABSOLUTE AUTO 1.76 K/uL (0.8-3.3); LYMPHOCYTES PERCENT AUTO 30.3 % (11.4-47.7); MEAN CORPUSCULAR HEMOGLOBIN 28.7 pg (31.6-35.5); MEAN CORPUSCULAR HGB CONC 32.3 g/dL (31.6-35.5); MEAN CORPUSCULAR VOLUME 88.8 fL (81.4-99.0); MONOCYTES ABSOLUTE AUTO 0.47 K/uL (0.20-0.90); MONOCYTES PERCENT AUTO 8.1 % (3.3-12.6); NEUTROPHILS ABSOLUTE AUTO 3.29 K/uL (1.0-7.6); NEUTROPHILS PERCENT AUTO 56.9 % (40.0-78.1); PLATELET COUNT,PLT 296 K/uL (130-375); RED BLOOD CELL COUNT 4.11 M/uL (3.77-5.24); WHITE BLOOD CELL COUNT,WBC 5.8 K/uL (3.2-11.0)
[2023-07-06 15:38] LABS: BASOPHILS ABSOLUTE AUTO 0.02 K/uL (0.00-0.10); IMMATURE GRAN ABSOLUTE AUTO 0.02 K/uL (0.00-0.23)
[2023-07-06 16:07] LABS: A/G RATIO 0.9 (1.2-2.2); ALANINE AMINOTRANSFERASE,ALT 51 U/L (12-78); ALBUMIN 3.4 g/dL (3.4-5.0); ALKALINE PHOSPHATASE 83 U/L (46-116); ANION GAP 12.5 mmol/L (5.0-14.0); ASPARTATE AMNIOTRANSFERASE,AST 37 U/L (15-37); BILIRUBIN TOTAL 0.4 mg/dL (0.2-1.0); BLOOD UREA NITROGEN,BUN 11 mg/dL (7-18); CALCIUM 8.8 mg/dL (8.5-10.1); CARBON DIOXIDE,CO2 24 mmol/L (21-32); CHLORIDE,CL 105 mmol/L (100-108); CREATININE 0.9 mg/dL (0.6-1.0); EST CRCL DRUG DOSING (CG) 65.34 mL/min; ESTIMATED GFR 75 mL/min (>60); GLUCOSE RANDOM 134 mg/dL (74-106); POTASSIUM,K 4.3 mmol/L (3.6-5.2); PROTEIN TOTAL,TP 7.2 g/dL (6.4-8.2); SODIUM,NA 141 mmol/L (140-148)
[2023-07-06] MEDS ORDERED: Sodium Chloride 0.9% 10 ML Syringe FLUSH PRN (16:29)
[2023-07-06] MEDS ORDERED: Furosemide 40 MG/4 ML VIAL IVPUSH ONE (16:29)
== END 2023-07-06 19:10 | disposition home or self-care (01) ==
LOC: JP.ED 13:35
DX: I11.0 Hypertensive heart disease with heart failure (principal); I50.9 Heart failure, unspecified; Z79.01 Long term (current) use of anticoagulants; Z79.899 Other long term (current) drug therapy
CPT/HCPCS: 36415; 71046; 80053; 83605; 83880; 84145; 85025; 96374; 99285; J1940

== ENCOUNTER 2023-07-19 07:53 | Emergency (ER) | payer SELFPAY ==
[2023-07-19 07:57] VITALS: BP 115/67; PULSE 100
[2023-07-19 08:49] LABS: BASOPHILS ABSOLUTE AUTO 0.03 K/uL (0.00-0.10); BASOPHILS PERCENT AUTO 0.3 % (0.1-1.3); HEMOGLOBIN 12.8 g/dL (11.2-15.5); IMMATURE GRAN ABSOLUTE AUTO 0.04 K/uL (0.00-0.23); IMMATURE GRAN PERCENT AUTO 0.4 % (0.0-0.7); LYMPHOCYTES ABSOLUTE AUTO 1.08 K/uL (0.8-3.3); LYMPHOCYTES PERCENT AUTO 10.4 % (11.4-47.7); MEAN CORPUSCULAR HEMOGLOBIN 28.1 pg (31.6-35.5); MEAN CORPUSCULAR HGB CONC 32.8 g/dL (31.6-35.5); MEAN CORPUSCULAR VOLUME 85.5 fL (81.4-99.0); MONOCYTES ABSOLUTE AUTO 0.46 K/uL (0.20-0.90); MONOCYTES PERCENT AUTO 4.4 % (3.3-12.6); NEUTROPHILS ABSOLUTE AUTO 8.67 K/uL (1.0-7.6); NEUTROPHILS PERCENT AUTO 83.5 % (40.0-78.1); PLATELET COUNT,PLT 289 K/uL (130-375); RED BLOOD CELL COUNT 4.56 M/uL (3.77-5.24); WHITE BLOOD CELL COUNT,WBC 10.4 K/uL (3.2-11.0)
[2023-07-19 09:13] LABS: CALCIUM 8.6 mg/dL (8.5-10.1); EST CRCL DRUG DOSING (CG) 58.81 mL/min; POTASSIUM,K 3.8 mmol/L (3.6-5.2)
[2023-07-19 09:17] LABS: APPEARANCE,URINE CLEAR (CLEAR); BILIRUBIN,URINE NEGATIVE (NEGATIVE); COLOR,URINE YELLOW (YELLOW); GLUCOSE,URINE NEGATIVE (NEGATIVE); KETONES,URINE NEGATIVE (NEGATIVE); LEUKOCYTE ESTERASE,URINE SMALL (NEGATIVE); NITRITE,URINE NEGATIVE (NEGATIVE); OCCULT BLOOD,URINE NEGATIVE (NEGATIVE); PROTEIN,URINE NEGATIVE (NEGATIVE); UROBILINOGEN,URINE 0.2 EU/dL (0.2-1.0)
[2023-07-19 09:18] LABS: ANION GAP 12.8 mmol/L (5.0-14.0)
[2023-07-19 09:19] LABS: AMORPHOUS SEDIMENT,URINE NOT SEEN; BACTERIA,URINE FEW; EPITHELIAL CELLS,URINE FEW; MUCUS,URINE NOT SEEN; RBC,URINE NOT SEEN (0-5)
[2023-07-19 09:20] LABS: BARBITURATE SCREEN,URINE NEGATIVE (NEGATIVE); BENZODIAZEPINES SCREEN,URINE NEGATIVE (NEGATIVE); METHADONE SCREEN, URINE NEGATIVE (NEGATIVE); METHAMPHETAMINES SCREEN, URINE NEGATIVE (NEGATIVE); OXYCODONE SCREEN,URINE NEGATIVE (NEGATIVE); PROPOXYPHENE SCREEN,URINE NEGATIVE (NEGATIVE); THC SCREEN,URINE 50 NG/ML PRESUMPTIVE POSITIVE (NEGATIVE)
[2023-07-19 09:26] LABS: AMPHETAMINES SCREEN, URINE NEGATIVE (NEGATIVE)
[2023-07-19] MEDS ORDERED: hydrOXYzine HCl 25 MG Tab PO SCH (09:45)
== END 2023-07-19 10:56 | disposition home or self-care (01) ==
LOC: JP.ED 07:53
DX: F41.0 Panic disorder [episodic paroxysmal anxiety] (principal); F41.1 Generalized anxiety disorder; F17.210 Nicotine dependence, cigarettes, uncomplicated; E66.9 Obesity, unspecified; Z68.25 Body mass index [BMI] 25.0-25.9, adult; Z86.16 Personal history of COVID-19; Z79.899 Other long term (current) drug therapy
CPT/HCPCS: 36415; 80048; 80305; 81001; 83880; 84484; 85025; 93005; 99284; A9270; 93010

== ENCOUNTER 2023-08-12 02:38 | Emergency (ER) | payer SELFPAY ==
[2023-08-12] MEDS ORDERED: Sodium Chloride 0.9% 10 ML Syringe FLUSH PRN (02:55)
[2023-08-12] MEDS ORDERED: Albuterol/Ipratropium 3.0-0.5 MG/3 ML Neb Soln NEB ONE (02:57)
[2023-08-12 03:21] LABS: BASOPHILS ABSOLUTE AUTO 0.03 K/uL (0.00-0.10); BASOPHILS PERCENT AUTO 0.1 % (0.1-1.3); HEMATOCRIT 39.2 % (34.3-46.0); HEMOGLOBIN 12.4 g/dL (11.2-15.5); IMMATURE GRAN ABSOLUTE AUTO 0.13 K/uL (0.00-0.23); IMMATURE GRAN PERCENT AUTO 0.6 % (0.0-0.7); LYMPHOCYTES ABSOLUTE AUTO 1.47 K/uL (0.8-3.3); LYMPHOCYTES PERCENT AUTO 6.8 % (11.4-47.7); MEAN CORPUSCULAR HEMOGLOBIN 27.9 pg (31.6-35.5); MEAN CORPUSCULAR HGB CONC 31.6 g/dL (31.6-35.5); MEAN CORPUSCULAR VOLUME 88.3 fL (81.4-99.0); MONOCYTES ABSOLUTE AUTO 1.86 K/uL (0.20-0.90); MONOCYTES PERCENT AUTO 8.6 % (3.3-12.6); NEUTROPHILS ABSOLUTE AUTO 18.22 K/uL (1.0-7.6); NEUTROPHILS PERCENT AUTO 83.9 % (40.0-78.1); PLATELET COUNT,PLT 235 K/uL (130-375); RED BLOOD CELL COUNT 4.44 M/uL (3.77-5.24); WHITE BLOOD CELL COUNT,WBC 21.7 K/uL (3.2-11.0)
[2023-08-12 03:26] LABS: BASE EXCESS VENOUS -13.2 mm/L; BICARBONATE,VENOUS 14.2 mmol/L; CARBOXYHEMOGLOBIN 1.8 % (0.0-1.6); METHEMOGLOBIN 1.3 %; O2 SATURATION VENOUS 38.3; OXYHEMOGLOBIN 37.1 %; PH,VENOUS 7.186 (7.350-7.450); PO2 VENOUS 34.2 mm/Hg; TOTAL HEMOGLOBIN 12.9 g/dL (12.0-16.0)
[2023-08-12 03:29] LABS: LACTIC ACID 10.2 mmol/L (0.4-2.0)
[2023-08-12] MEDS ORDERED: Levofloxacin/Dextrose 5%-Water 750 MG in Premix Bag 1 BAG IV SCH (03:30)
[2023-08-12] MEDS ORDERED: Sodium Chloride 0.9% 1,000 ML IV SCH ×2 (03:45→05:15)
[2023-08-12 03:53] LABS: A/G RATIO 1.1 (1.2-2.2); ALBUMIN 3.6 g/dL (3.4-5.0); ALKALINE PHOSPHATASE 124 U/L (46-116); BILIRUBIN TOTAL 4.6 mg/dL (0.2-1.0); BLOOD UREA NITROGEN,BUN 68 mg/dL (7-18); CALCIUM 8.5 mg/dL (8.5-10.1); CARBON DIOXIDE,CO2 16 mmol/L (21-32); CHLORIDE,CL 88 mmol/L (100-108); CREATININE 2.5 mg/dL (0.6-1.0); EST CRCL DRUG DOSING (CG) 25.35 mL/min; ESTIMATED GFR 22 mL/min (>60); POTASSIUM,K 5.2 mmol/L (3.6-5.2); PROTEIN TOTAL,TP 6.8 g/dL (6.4-8.2); SODIUM,NA 127 mmol/L (140-148); TROPONIN I HIGH SENSITIVITY 33.6 pg/mL (<=60.3)
[2023-08-12 04:00] LABS: PROTHROMBIN TIME > 170.9 sec (9.2-10.6)
[2023-08-12 04:02] LABS: INFLUENZA A NAA NEGATIVE (NEGATIVE); INFLUENZA B NAA NEGATIVE (NEGATIVE); RESPIRATORY SYNCYTIAL VIR NAA NEGATIVE (NEGATIVE)
[2023-08-12 04:04] LABS: CORONAVIRUS COVID-19 NAA POSITIVE (NEGATIVE)
[2023-08-12 04:09] LABS: ANION GAP 28.2 mmol/L (5.0-14.0)
[2023-08-12 04:10] LABS: GLUCOSE RANDOM 43 mg/dL (74-106)
[2023-08-12] MEDS ORDERED: 50% Dextrose in Water 50 ML Syringe IVPUSH ONE (04:10)
[2023-08-12] MEDS ORDERED: fentaNYL 100 MCG/2 ML SDV IVPUSH ONE ×2 (04:12→06:09)
[2023-08-12 04:16] LABS: ALANINE AMINOTRANSFERASE,ALT 5621 U/L (12-78); ASPARTATE AMNIOTRANSFERASE,AST 8171 U/L (15-37)
[2023-08-12] MEDS: Dextrose 5%-0.9% NaCl 1,000 ML IV SCH ×2 (04:20→07:49)
[2023-08-12 07:11] VITALS: BP 108/70; PULSE 91
[2023-08-12] MEDS ORDERED: HYDROmorphone 0.5 MG/0.5 ML Syringe IVPUSH ONE (07:26)
[2023-08-14] MEDS ORDERED: Levofloxacin/Dextrose 5%-Water 750 MG in Premix Bag 1 BAG IV SCH (04:00)
== END 2023-08-12 08:00 ==
LOC: JP.ED 02:38
DX: U07.1 COVID-19 (principal); A41.9 Sepsis, unspecified organism; R65.20 Severe sepsis without septic shock; K72.00 Acute and subacute hepatic failure without coma; J44.9 Chronic obstructive pulmonary disease, unspecified; Z79.01 Long term (current) use of anticoagulants; Z79.899 Other long term (current) drug therapy
CPT/HCPCS: 0241U; 36415; 71045; 71250; 74176; 80053; 82803; 82947; 83605; 83880; 84145; 84484; 85025; 85610; 86140; 87040; 93005; 94640; 96365; 96375; 96376; 99285; J1170; J1956; J3010; J3490; J7030; J7620

== ENCOUNTER 2023-11-09 21:31 | Emergency (ER) | payer MEDICAID ==
[2023-11-09 22:29] LABS: BASOPHILS PERCENT AUTO 0.2 % (0.1-1.3); HEMATOCRIT 32.1 % (34.3-46.0); IMMATURE GRAN ABSOLUTE AUTO 0.09 K/uL (0.00-0.23); IMMATURE GRAN PERCENT AUTO 0.9 % (0.0-0.7); LYMPHOCYTES ABSOLUTE AUTO 1.09 K/uL (0.8-3.3); LYMPHOCYTES PERCENT AUTO 11.5 % (11.4-47.7); MEAN CORPUSCULAR HEMOGLOBIN 26.3 pg (31.6-35.5); MEAN CORPUSCULAR HGB CONC 31.2 g/dL (31.6-35.5); MEAN CORPUSCULAR VOLUME 84.5 fL (81.4-99.0); MONOCYTES ABSOLUTE AUTO 0.52 K/uL (0.20-0.90); MONOCYTES PERCENT AUTO 5.5 % (3.3-12.6); NEUTROPHILS ABSOLUTE AUTO 7.79 K/uL (1.0-7.6); NEUTROPHILS PERCENT AUTO 81.9 % (40.0-78.1); PLATELET COUNT,PLT 135 K/uL (130-375); WHITE BLOOD CELL COUNT,WBC 9.5 K/uL (3.2-11.0)
[2023-11-09 22:30] LABS: BASOPHILS ABSOLUTE AUTO 0.02 K/uL (0.00-0.10)
[2023-11-09 22:50] LABS: ALANINE AMINOTRANSFERASE,ALT 56 U/L (12-78); ALBUMIN 3.1 g/dL (3.4-5.0); ALKALINE PHOSPHATASE 123 U/L (46-116); ASPARTATE AMNIOTRANSFERASE,AST 40 U/L (15-37); BLOOD UREA NITROGEN,BUN 32 mg/dL (7-18); CALCIUM 9.7 mg/dL (8.5-10.1); CARBON DIOXIDE,CO2 22 mmol/L (21-32); CHLORIDE,CL 86 mmol/L (100-108); CREATININE 1.5 mg/dL (0.6-1.0); EST CRCL DRUG DOSING (CG) 36.16 mL/min; ESTIMATED GFR 41 mL/min (>60); GLUCOSE RANDOM 116 mg/dL (74-106); POTASSIUM,K 5.7 mmol/L (3.6-5.2); PROTEIN TOTAL,TP 6.2 g/dL (6.4-8.2); SODIUM,NA 123 mmol/L (140-148)
[2023-11-09 22:51] LABS: ANION GAP 20.7 mmol/L (5.0-14.0)
[2023-11-10 00:07] VITALS: BP 87/64; PULSE 92
[2023-11-10] MEDS: Bisacodyl 10 MG Supp RECTAL ONE (00:38)
[2023-11-10] MEDS: Bisacodyl 5 MG Tab PO STA (00:48)
== END 2023-11-10 01:02 | disposition home or self-care (01) ==
LOC: JP.ED 21:31
DX: K56.49 Other impaction of intestine (principal); I50.9 Heart failure, unspecified; J44.9 Chronic obstructive pulmonary disease, unspecified; E03.9 Hypothyroidism, unspecified; Z86.16 Personal history of COVID-19; Z79.01 Long term (current) use of anticoagulants; Z79.899 Other long term (current) drug therapy; Z95.5 Presence of coronary angioplasty implant and graft; Z87.891 Personal history of nicotine dependence
CPT/HCPCS: 36415; 74019; 80053; 85025; 99284; A9270

== ENCOUNTER 2023-11-10 07:26 | Observation (INO) | payer MEDICAID ==
[2023-11-10 08:02] LABS: BASOPHILS PERCENT AUTO 0.2 % (0.1-1.3); EOSINOPHILS PERCENT AUTO 0.1 % (0.0-5.4); HEMATOCRIT 35.1 % (34.3-46.0); HEMOGLOBIN 10.7 g/dL (11.2-15.5); IMMATURE GRAN ABSOLUTE AUTO 0.11 K/uL (0.00-0.23); IMMATURE GRAN PERCENT AUTO 0.9 % (0.0-0.7); LYMPHOCYTES ABSOLUTE AUTO 1.11 K/uL (0.8-3.3); LYMPHOCYTES PERCENT AUTO 9.3 % (11.4-47.7); MEAN CORPUSCULAR HEMOGLOBIN 26.5 pg (31.6-35.5); MEAN CORPUSCULAR HGB CONC 30.5 g/dL (31.6-35.5); MEAN CORPUSCULAR VOLUME 86.9 fL (81.4-99.0); MONOCYTES ABSOLUTE AUTO 0.77 K/uL (0.20-0.90); MONOCYTES PERCENT AUTO 6.4 % (3.3-12.6); NEUTROPHILS ABSOLUTE AUTO 9.98 K/uL (1.0-7.6); NEUTROPHILS PERCENT AUTO 83.1 % (40.0-78.1); PLATELET COUNT,PLT 172 K/uL (130-375); RED BLOOD CELL COUNT 4.04 M/uL (3.77-5.24)
[2023-11-10 08:06] LABS: BASOPHILS ABSOLUTE AUTO 0.02 K/uL (0.00-0.10); EOSINOPHILS ABSOLUTE AUTO 0.01 K/uL (0.00-0.40)
[2023-11-10 08:10] LABS: BASE EXCESS ARTERIAL -8.8 mm/L; BICARBONATE,ARTERIAL 14.5 mmol/L (22.0-26.0); CARBOXYHEMOGLOBIN 3.4 % (0.0-1.6); METHEMOGLOBIN 0.8 %; OXYHEMOGLOBIN 95.5 %; PCO2 ARTERIAL 24.6 mmHg (35.0-42.0); TOTAL HEMOGLOBIN 10.8 g/dL (12.0-16.0)
[2023-11-10 08:11] LABS: O2 SATURATION ARTERIAL > 99.3 % (95.0-98.0)
[2023-11-10 08:31] LABS: ALANINE AMINOTRANSFERASE,ALT 57 U/L (12-78); ALBUMIN 3.2 g/dL (3.4-5.0); ALKALINE PHOSPHATASE 131 U/L (46-116); ASPARTATE AMNIOTRANSFERASE,AST 42 U/L (15-37); BILIRUBIN TOTAL 3.7 mg/dL (0.2-1.0); BLOOD UREA NITROGEN,BUN 36 mg/dL (7-18); CARBON DIOXIDE,CO2 19 mmol/L (21-32); CHLORIDE,CL 86 mmol/L (100-108); EST CRCL DRUG DOSING (CG) 27.12 mL/min; ESTIMATED GFR 29 mL/min (>60); GLUCOSE RANDOM 96 mg/dL (74-106); PRO B-TYPE NATRIUR PEPT,BNPPRO 23176 pg/mL (5-125); PROTEIN TOTAL,TP 6.5 g/dL (6.4-8.2); SODIUM,NA 124 mmol/L (140-148); TROPONIN I HIGH SENSITIVITY 30.5 pg/mL (<=60.3)
[2023-11-10 08:32] LABS: ANION GAP 25.3 mmol/L (5.0-14.0); POTASSIUM,K 6.3 mmol/L (3.6-5.2)
[2023-11-10] MEDS: Sodium Chloride 0.9% 10 ML Syringe FLUSH PRN (08:44)
[2023-11-10] MEDS: Morphine 2 MG/ML SYRINGE IVPUSH ONE (09:29)
[2023-11-10 10:14] VITALS: BP 85/63; PULSE 90
[2023-11-10] MEDS: Morphine 2 MG/ML SYRINGE IVPUSH PRN (10:57)
[2023-11-10] MEDS: LORazepam 2 MG/ML SDV IVPUSH PRN (11:15)
[2023-11-10] MEDS ORDERED: Acetaminophen 325 MG Tab PO PRN (11:48)
[2023-11-10] MEDS ORDERED: Ondansetron 4 MG/2 ML SDV IV PRN (11:48)
[2023-11-10] MEDS ORDERED: Morphine 2 MG/ML SYRINGE IVPUSH PRN (11:48)
[2023-11-10] MEDS ORDERED: Sodium Chloride 0.9% 10 ML Syringe FLUSH PRN (11:48)
[2023-11-10] MEDS ORDERED: Polyethylene Glycol 3350 Powder 17 GM Packet PO PRN (11:48)
[2023-11-10] MEDS ORDERED: Albuterol 0.083% 2.5 MG/3 ML Neb Soln NEB PRN (11:48)
[2023-11-10] MEDS ORDERED: LORazepam 2 MG/ML SDV IVPUSH PRN (11:48)
[2023-11-10] MEDS: Norepinephrine Bit/D5W Premix 4 MG in Premix Bag 1 BAG IV SCH (12:53)
[2023-11-10] MEDS ORDERED: traZODone 50 MG Tab PO PRN (14:58)
[2023-11-10] MEDS ORDERED: DOBUTAMINE 500 MG/250 ML IV SCH (15:00)
[2023-11-10 15:06] LABS: CORONAVIRUS COVID-19 NAA NEGATIVE (NEGATIVE); INFLUENZA A NAA NEGATIVE (NEGATIVE); INFLUENZA B NAA NEGATIVE (NEGATIVE); RESPIRATORY SYNCYTIAL VIR NAA NEGATIVE (NEGATIVE)
[2023-11-10] MEDS ORDERED: Apixaban 5 MG Tab PO SCH (21:00)
[2023-11-11] MEDS ORDERED: Levothyroxine 50 MCG Tab PO SCH (07:30)
[2023-11-11] MEDS ORDERED: Amiodarone 200 MG Tab PO SCH (09:00)
[2023-11-11] MEDS ORDERED: Escitalopram 10 MG Tab PO SCH (09:00)
== END 2023-11-10 19:50 | disposition expired ==
LOC: JP.ED 07:26 → UNDOADMOB 09:35 → JP.OB 09:35 → JP.MS 09:35 → UNDODISOB 19:50
PROVIDERS: ADMIT Hospitalist; ATTEND Hospitalist
DX: I50.84 End stage heart failure (principal); J96.21 Acute and chronic respiratory failure with hypoxia; I50.23 Acute on chronic systolic (congestive) heart failure; J44.9 Chronic obstructive pulmonary disease, unspecified; E03.9 Hypothyroidism, unspecified; F32.A Depression, unspecified; I95.9 Hypotension, unspecified; F17.200 Nicotine dependence, unspecified, uncomplicated; Z79.890 Hormone replacement therapy; Z79.899 Other long term (current) drug therapy
CPT/HCPCS: 0241U; 36415; 36600; 71045; 71045-26; 80053; 82803; 83605; 83880; 84484; 85025; 96365; 96366; 96372; 96374; 96375; 96376; 99285; 99285-25; G0378; J2060; J2270; J3490